=== PATIENT | female | born 1980 | race Caucasian/White ===

== ENCOUNTER 2016-07-07 20:46 | Emergency (ER) | payer MEDICAID ==
[2016-07-07 23:30] VITALS: BP 132/85
== END 2016-07-07 23:30 | disposition home or self-care (01) ==
LOC: ED 20:46
DX: L02.01 Cutaneous abscess of face (principal)

== ENCOUNTER 2016-12-03 18:26 | Emergency (ER) | payer MEDICAID ==
[2016-12-03 21:20] LABS: BASOPHIL % 0.4 % (0-2); PLATELET COUNT 371 x10^3mcL (130-400); RED CELL DISTRIBUTION WIDTH 12.7 % (11.5-14.5)
[2016-12-03 21:30] LABS: CALCIUM 8.9 mg/dL (8.5-10.1); CARBON DIOXIDE 27.5 mmol/L (21-32); CHLORIDE SERUM 106 mmol/L (98-107); CREATININE SERUM 0.7 mg/dL (0.6-1.0); GFR1 > 60 mL/min; GLUCOSE SERUM 96 mg/dL (74-106); POTASSIUM SERUM 3.6 mmol/L (3.5-5.1); SODIUM SERUM 142 mmol/L (136-145)
[2016-12-03 21:41] LABS: ALBUMIN 3.5 g/dL (3.4-5.0); ALKALINE PHOSPHATASE 75 U/L (46-116); ALT/SGPT 39 U/L (14-59); AMYLASE 62 U/L (25-115); AST/SGOT 18 U/L (15-37); BILIRUBIN TOTAL 0.28 mg/dL (0.20-1.00); LIPASE 186 IU/L (73-393); TOTAL PROTEIN, SERUM 7.3 g/dL (6.4-8.2)
[2016-12-03 22:00] VITALS: BP 156/54
== END 2016-12-03 22:00 | disposition home or self-care (01) ==
LOC: ED 18:26
PROVIDERS: Emergency Medicine
DX: R10.13 Epigastric pain (principal)
CPT/HCPCS: 36415; J2270; Q0162

== ENCOUNTER 2017-01-04 17:34 | Emergency (ER) | payer MEDICAID ==
[2017-01-04 20:43] VITALS: BP 123/71
== END 2017-01-04 20:43 | disposition home or self-care (01) ==
LOC: ED 17:34
DX: N39.0 Urinary tract infection, site not specified (principal); K21.9 Gastro-esophageal reflux disease without esophagitis

== ENCOUNTER 2017-03-20 15:34 | Emergency (ER) | payer MEDICAID ==
[~2017-03-20] VITALS: Ht 170.2 cm; Wt 97.7 kg
[2017-03-20 17:06] LABS: BASOPHIL % 0.4 % (0-2); PLATELET COUNT 376 x10^3mcL (130-400); RED CELL DISTRIBUTION WIDTH 13.1 % (11.5-14.5)
[2017-03-20 17:17] LABS: CARBON DIOXIDE 26.5 mmol/L (21-32); CHLORIDE SERUM 108 mmol/L (98-107); CREATININE SERUM 0.7 mg/dL (0.6-1.0); GFR1 > 60 mL/min; GLUCOSE SERUM 109 mg/dL (74-106); POTASSIUM SERUM 3.7 mmol/L (3.5-5.1); SODIUM SERUM 142 mmol/L (136-145)
[2017-03-20 17:22] LABS: ALBUMIN 3.5 g/dL (3.4-5.0); ALKALINE PHOSPHATASE 91 U/L (46-116); ALT/SGPT 33 U/L (14-59); AST/SGOT 15 U/L (15-37); BILIRUBIN TOTAL 0.3 mg/dL (0.20-1.00); TOTAL PROTEIN, SERUM 7.2 g/dL (6.4-8.2)
[2017-03-20 17:49] VITALS: BP 125/87
== END 2017-03-20 17:49 | disposition home or self-care (01) ==
LOC: ED 15:34
PROVIDERS: Emergency Medicine
DX: K64.4 Residual hemorrhoidal skin tags (principal); R51 Headache
CPT/HCPCS: 36415

== ENCOUNTER 2017-05-01 10:35 | Emergency (ER) | payer MEDICAID ==
[~2017-05-01] VITALS: Ht 175.3 cm; Wt 94.8 kg
[2017-05-01 10:51] VITALS: Ht 175.3 cm; Wt 94.8 kg
[2017-05-01 12:47] LABS: UA SPECIFIC GRAVITY 1.025 (1.005-1.035); microscopic required? YES; urine erythrocyte 1+ (NEGATIVE)
[2017-05-01 14:35] VITALS: BP 115/73
== END 2017-05-01 14:35 | disposition home or self-care (01) ==
LOC: ED 10:35
PROVIDERS: Emergency Medicine
DX: R42 Dizziness and giddiness (principal); R11.0 Nausea; R10.13 Epigastric pain
CPT/HCPCS: J8597

== ENCOUNTER 2017-07-17 09:50 | Emergency (ER) | payer MEDICAID ==
[~2017-07-17] VITALS: Ht 170.2 cm; Wt 93.9 kg
[2017-07-17 10:08] VITALS: BP 131/83; Ht 170.2 cm; Wt 93.9 kg
== END 2017-07-17 12:53 | disposition home or self-care (01) ==
LOC: ED 09:50
DX: J06.9 Acute upper respiratory infection, unspecified (principal); R25.1 Tremor, unspecified
CPT/HCPCS: J1200; J2765